=== PATIENT | male | born 2000 | race Caucasian/White ===

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

== ENCOUNTER 2022-09-29 11:49 | Emergency (ER) | payer MEDICAID ==
[~2022-09-29] VITALS: Ht 175.3 cm; Wt 73.9 kg
[2022-09-29 11:58] VITALS: BP 129/71
[2022-09-29 12:38] VITALS: BP 129/71
--- NOTE | 2022-09-29 12:38 | NUR ---
Patient discharged with v/s stable. Written and verbal after care instructions given and explained. Patient verbalized understanding. Ambulatory with steady gait. All questions addressed prior to discharge. Advised to follow up with PMD.
== END 2022-09-29 12:38 | disposition home or self-care (01) ==
LOC: MED 11:49
DX: S51.831A Puncture wound without foreign body of right forearm, initial encounter (principal); S01.131A Puncture wound without foreign body of right eyelid and periocular area, initial encounter; W54.0XXA Bitten by dog, initial encounter; Y93.89 Activity, other specified; Y92.89 Other specified places as the place of occurrence of the external cause; Y99.8 Other external cause status
CPT/HCPCS: 90471; 90715; 99283